=== PATIENT | male | born 1960 | race Caucasian/White ===

== ENCOUNTER 2017-01-05 16:47 | Emergency (ER) | payer BC, OTHER ==
[~2017-01-05] VITALS: Ht 193 cm; Wt 89.8 kg
[~2017-01-05 16:47] MED LIST: HYDR-2672 PO; OXYC60TA7 PO
[2017-01-05 17:14] VITALS: BP 137/85
[2017-01-05] MEDS ORDERED: IV NORMAL SALINE 1000ML BAG 1,000 ML IV ONE (18:00)
[2017-01-05 18:24] LABS: BASO % 0 % (0-3); EOS % 3 % (0-3); HEMATOCRIT 43.3 % (39.0-53.0); HEMOGLOBIN 14.8 g/dL (13.0-17.5); LYMPH % 14 % (24-48); MEAN CORPUSCULAR HEMOGLOBIN 32 pg (25-35); MEAN CORPUSCULAR HGB CONC 34 g/dL (31-37); MEAN CORPUSCULAR VOLUME 95 fL (79-100); MONO % 5 % (0-9); NEUT % 78 % (31-73); PLATELET COUNT 185 x10^3/uL (140-400); RED BLOOD COUNT 4.57 x10^6/uL (4.30-5.70); RED CELL DISTRIBUTION WIDTH 13.6 % (11.5-14.5); WHITE BLOOD COUNT 7.2 x10^3/uL (4.0-11.0)
[2017-01-05 18:35] LABS: CALCIUM 8.4 mg/dL (8.5-10.1); CREATININE 0.9 mg/dL (0.7-1.3); POTASSIUM 4.2 mmol/L (3.5-5.1)
--- NOTE | 2017-01-05 18:35 | EKG ---
[facility] [address] [place] [address] Test Date: 2017-01-05 Test Time: 18:32:08 Pat Name: CHRISTINA CABA Department: Room: Gender: M [employer]: : 1960 Requested By: LONNIE PETERSON Order Number: [id number] Reading MD: Measurements Intervals [place] Rate: 56 P: -38 [place]: 170 QRS: 57 QRSD: 90 T: 52 QT: 418 QTc: 406 Interpretive Statements SINUS RHYTHM NON SPECIFIC ST-T ABNORMALITY (ELEVATION) OTHERWISE NORMAL ECG RI6.01 Unconfirmed report No previous ECG available for comparison
--- NOTE | 2017-01-05 19:47 | PHYS DOC ---
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 He reports she had similar symptoms a few years ago and had a anemia at that time. Patient has history rheumatoid arthritis but is not currently taking any biologic therapy. He is not currently taking any medications. He reports last time that his symptoms resolved with steroids. He denies any recent bloody bowel movements. He states his balance has been normal. He denies any significant nausea vomiting fever or chest pain. Upon my initial assessment , the patient is in no acute distress. He is nontoxic and afebrile upon arrival. He is fully alert and oriented and able to answer all my questions appropriately. Review of Systems Review of Systems Constitutional: Denies fever or chills [] Eyes: Denies change in visual acuity, redness, or eye pain [] HENT: Denies nasal congestion or sore throat [] Respiratory: Denies cough or shortness of breath [] Cardiovascular: No additional information not addressed in HPI [] GI: Denies abdominal pain, nausea, vomiting, bloody stools or diarrhea [] : Denies dysuria or hematuria [] Musculoskeletal: Denies back pain or joint pain [] Integument: Denies rash or skin lesions [] Neurologic: Denies headache, focal weakness or sensory changes [] Endocrine: Denies polyuria or polydipsia [] Current Medications Current Medications Current Medications Medications (Trade) Dose Ordered Sig/Charli Start Time Stop Time Status Last Admin Dose Admin Sodium Chloride 1,000 ml @ 1,000 mls/hr 1X ONCE 01/05/17 18:00 01/05/17 18:59 DC 01/05/17 18:21 1,000 MLS/HR Allergies Allergies Allergies Coded Allergies Type Severity Reaction Last Updated Verified morphine Adverse Reaction Intermediate nausea 12/29/15 Yes Physical Exam Physical Exam Constitutional: Well developed, well nourished, no acute distress, non-toxic appearance. [] HENT: Normocephalic, atraumatic, bilateral external ears normal, oropharynx moist, no oral exudates, nose normal. [] Eyes: PERRLA, EOMI, conjunctiva normal, no discharge. [] Neck: Normal range of motion, no tenderness, supple, no stridor. [] Cardiovascular:Heart rate regular rhythm, no murmur [] Lungs & Thorax: Bilateral breath sounds clear to auscultation [] Abdomen: Bowel sounds normal, soft, no tenderness, no masses, no pulsatile masses. [] Skin: Warm, dry, no erythema, no rash. [] Back: No tenderness, no CVA tenderness. [] Extremities: No tenderness, no cyanosis, no clubbing, ROM intact, no edema. [] Neurologic: Alert and oriented X 3, normal motor function, normal sensory function, no focal deficits noted. [] Psychologic: Affect normal, judgement normal, mood normal. [] Current Patient Data Vital Signs Vital Signs Date Time Temp Pulse Resp B/P (MAP) Pulse Ox O2 Delivery O2 Flow Rate FiO2 01/05/17 17:14 98.0 72 16 137/85 (102) 98 Room Air 98.0 Lab Values Laboratory Tests Test 01/05/17 18:12 White Blood Count 7.2 x10^3/uL (4.0-11.0) Red Blood Count 4.57 x10^6/uL (4.30-5.70) Hemoglobin 14.8 g/dL (13.0-17.5) Hematocrit 43.3 % (39.0-53.0) Mean Corpuscular Volume 95 fL (79-100) Mean Corpuscular Hemoglobin 32 pg (25-35) Mean Corpuscular Hemoglobin Concent 34 g/dL (31-37) Red Cell Distribution Width 13.6 % (11.5-14.5) Platelet Count 185 x10^3/uL (140-400) Neutrophils (%) (Auto) 78 % (31-73) H Lymphocytes (%) (Auto) 14 % (24-48) L Monocytes (%) (Auto) 5 % (0-9) Eosinophils (%) (Auto) 3 % (0-3) Basophils (%) (Auto) 0 % (0-3) Neutrophils # (Auto) 5.7 x10^3uL (1.8-7.7) Lymphocytes # (Auto) 1.0 x10^3/uL (1.0-4.8) Monocytes # (Auto) 0.3 x10^3/uL (0.0-1.1) Eosinophils # (Auto) 0.2 x10^3/uL (0.0-0.7) Basophils # (Auto) 0.0 x10^3/uL (0.0-0.2) Sodium Level 140 mmol/L (136-145) Potassium Level 4.2 mmol/L (3.5-5.1) Chloride Level 104 mmol/L (98-107) Carbon Dioxide Level 31 mmol/L (21-32) Anion Gap 5 (6-14) L Blood Urea Nitrogen 13 mg/dL (8-26) Creatinine 0.9 mg/dL (0.7-1.3) Estimated GFR (Cockcroft-Gault) 87.0 Glucose Level 99 mg/dL (70-99) Calcium Level 8.4 mg/dL (8.5-10.1) L Troponin I Quantitative < 0.017 ng/mL (0.000-0.055) Laboratory Tests 01/05/17 18:12 Laboratory Tests 01/05/17 18:12 EKG EKG EKG as interpreted by me shows a sinus rhythm with a rate of 56 bpm. Intervals are normal. There is no acute injury pattern on this EKG. There is no ectopy. Radiology/Procedures Radiology/Procedures One view of the chest as interpreted by me did not reveal any acute cardiopulmonary process. Course & Med Decision Making Course & Med Decision Making Pertinent Labs and Imaging studies reviewed. (See chart for details) This 86-year-old male who had symptomatic dizziness lightheadedness had a IV fluid bolus given. His laboratory workup is unremarkable. His EKG and chest film were also unremarkable. He does not have an anemia at this time. I counseled him that he is to continue to stay well hydrated at home and to follow closely his primary care doctor and to return to the ER if his symptoms should worsen in any way. Patient was successfully ambulated around the department without difficulty. Return precautions were provided and acknowledged by the patient. Dragon Disclaimer Dragon Disclaimer This electronic medical record was generated, in whole or in part, using a voice recognition dictation system. Departure Departure Impression: Primary Impression: Dizziness Additional Impression: Lightheaded Disposition: 01 HOME, SELF-CARE Admitting Physician: Other Condition: IMPROVED Referrals: BANG MADERA MD (PCP) Patient Instructions: Dizziness, [id number] Additional Instructions: Please follow up with your primary doctor in the next 2-3 for your dizziness and lightheadedness. Continue to drink plenty of fluids. Return to the ER if you develop any worsening of your symptoms. Problem Qualifiers LONNIE PETERSON DO January 05, 2017 19:47
--- NOTE | 2017-01-06 08:38 | RAD ---
Indication: Chest pain starting today. Technique: Upright portable chest radiograph was obtained. Comparison is from December 29, 2015. Findings: The lungs are hyperinflated but clear. The heart is not enlarged and there is no heart failure. Leads overlie the patient. Bony structures are intact. Impression: Hyperinflation compatible with emphysema. No acute thoracic findings.
== END 2017-01-05 19:54 | disposition home or self-care (01) ==
LOC: ER 17:54
DX: R42 Dizziness and giddiness (principal); F12.10 Cannabis abuse, uncomplicated; M06.9 Rheumatoid arthritis, unspecified; Z88.5 Allergy status to narcotic agent
CPT/HCPCS: 36415; 71010; 80048; 84484; 85027; 93005; 96360; 99285; J7030